=== PATIENT | female | born 1990 | race Caucasian/White ===

== ENCOUNTER 2017-06-22 15:40 | Emergency (ER) | payer OTHER ==
--- NOTE | 2017-06-22 16:43 | ED Physician Documentation ---
PD HPI HEADACHE - Stated complaint Stated Complaint: ANXIETY/PALPITATIONS - Chief complaint Chief Complaint: General - History obtained from History obtained from: Patient - History of Present Illness Timing - onset: How many days ago (few days of feeling some lightheaded, with headache for the past week. Feeling some fluttering/palpitations in chest today. No significant caffeine use.) Timing - onset during: Rest Timing - duration: Weeks (1) Timing - details: Gradual onset, Still present, Waxing and waning Location: Front Quality: Throbbing, Aching. No: Thunderclap Associated symptoms: Nausea. No: Fever, Stiff neck, Vomiting, Weakness, Numbness, Eye pain Worsened by: Light Contributing factors: No: Anticoagulated, Possible carbon monoxide, Recent illness, Trauma Similar symptoms before: Has not had sx before Recently seen: Not recently seen Review of Systems Constitutional: denies: Fever, Chills Eyes: reports: Photophobia. denies: Loss of vision, Decreased vision Ears: denies: Loss of hearing, Ear pain Nose: denies: Rhinorrhea / runny nose, Congestion Throat: denies: Sore throat Cardiac: reports: Palpitations. denies: Chest pain / pressure Respiratory: denies: Cough GI: denies: Abdominal Pain, Nausea, Vomiting, Diarrhea Skin: denies: Rash, Lesions Musculoskeletal: denies: Neck pain, Back pain, Extremity swelling Neurologic: reports: Generalized weakness, Headache. denies: Focal weakness, Numbness, Near syncope, Altered mental status, Head injury Endocrine: reports: Weight gain (about 20 lbs in the past 2 months). denies: Weight loss Immunocompromised: denies: Immunocompromised PD PAST MEDICAL HISTORY - Past Medical History Cardiovascular: None Respiratory: None Neuro: None Endocrine/Autoimmune: None - Present Medications Home Medications: Ambulatory Orders Medication Instructions Recorded Confirmed Escitalopram [Lexapro] 10 mg PO DAILY 06/22/17 06/22/17 HYDROcod/ACETAM 5/325 [Stevenson 5/325] 1 tab PO Q6H PRN #15 tablet 06/22/17 Lorazepam [Ativan] 1 mg PO BID #12 tablet 06/22/17 Naproxen 375 mg PO BID #20 tablet 06/22/17 - Allergies Allergies/Adverse Reactions: Allergies Allergy/AdvReac Type Severity Reaction Status Date / Time ketorolac tromethamine * AdvReac Unknown Verified 06/22/17 15:49 [From Toradol] morphine AdvReac Unknown Verified 06/22/17 15:49 - Living Situation Living Situation: reports: With spouse/s.o. (who is on deployment for past 2 months and returning in few days. ) Living Arrangement: reports: At home - Social History Does the pt smoke?: No Does the pt drink ETOH?: No Does the pt have substance abuse?: No - Family History Family history: reports: Non contributory. denies: Cerebral aneurysm PD ED PE NORMAL - Vitals Vital signs reviewed: Yes - General General: Alert and oriented X 3, No acute distress, Well developed/nourished - HEENT HEENT: PERRL, EOMI, Moist mucous membranes, Pharynx benign - Neck Neck: Supple, no meningeal sign, No adenopathy, No bruit - Cardiac Cardiac: RRR, No murmur - Respiratory Respiratory: Clear bilaterally - Abdomen Abdomen: Normal bowel sounds, Soft - Back Back: No CVA TTP - Derm Derm: Normal color, Warm and dry, No rash - Extremities Extremities: No deformity, No tenderness to palpate, Normal ROM s pain - Neuro Neuro: Alert and oriented X 3, 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 No: ST elevation c/w ischemia, ST depression Compare to prior EKG: Old EKG unavailable - Labs Labs: Laboratory Tests 06/22/17 06/22/17 06/22/17 17:21 17:21 17:21 WBC 7.7 RBC 4.98 Hgb 15.1 Hct 43.4 MCV 87.1 MCH 30.2 MCHC 34.7 RDW 12.6 Plt Count 285 MPV 7.0 L Neut # 4.1 Lymph # 2.9 [place] # 0.4 Eos # 0.1 Baso # 0.1 Absolute Nucleated RBC 0.00 Nucleated RBCs 0.0 ESR 2 Sodium 138 Potassium 3.7 Chloride 105 Carbon Dioxide 28 Anion Gap 5.0 L BUN 13 Creatinine 0.8 Estimated GFR (MDRD) 86 L Glucose 87 Calcium 8.8 Magnesium 2.1 Total Bilirubin 0.2 AST 20 ALT 17 Alkaline Phosphatase 53 Total Protein 7.3 Albumin 4.3 Globulin 3.0 Albumin/Globulin Ratio 1.4 Lipase 31 TSH Serum HCG, Qual Urine Color Urine Clarity Urine pH Ur Specific [place] Urine Protein Urine Glucose (UA) Urine Ketones Urine Occult Blood Urine Nitrite Urine Bilirubin Urine Urobilinogen Ur Leukocyte Esterase Ur Microscopic Review Urine Culture Comments 06/22/17 06/22/17 06/22/17 17:21 17:21 17:50 WBC RBC Hgb Hct MCV MCH MCHC RDW Plt Count MPV Neut # Lymph # [place] # Eos # Baso # Absolute Nucleated RBC Nucleated RBCs ESR Sodium Potassium Chloride Carbon Dioxide Anion Gap BUN Creatinine Estimated GFR (MDRD) Glucose Calcium Magnesium Total Bilirubin AST ALT Alkaline Phosphatase Total Protein Albumin Globulin Albumin/Globulin Ratio Lipase TSH 1.85 Serum HCG, Qual NEGATIVE Urine Color YELLOW Urine Clarity CLEAR Urine pH 6.0 Ur Specific [place] 1.020 Urine Protein NEGATIVE Urine Glucose (UA) NEGATIVE Urine Ketones NEGATIVE Urine Occult Blood NEGATIVE Urine Nitrite NEGATIVE Urine Bilirubin NEGATIVE Urine Urobilinogen 0.2 (NORMAL) Ur Leukocyte Esterase NEGATIVE Ur Microscopic Review NOT INDICATED Urine Culture Comments NOT INDICATED - Rads (name of study) head CT Radiology: Prelim report reviewed, EMP read contemporaneously (no acute process. ) PD MEDICAL DECISION MAKING - ED course Complexity details: reviewed results (no acute on CT head. ECG showing normal pattern. Did not see any irregular rhythms on monitor while here. She says she did have some flutter feeling while in ED and not obvious irreg rhythm on wave review. ), considered differential, d/w patient Departure - Departure Disposition: Home, Self Care Clinical Impression: Muscle tension headache, Palpitations Condition: Stable Record reviewed to determine appropriate education?: Yes Instructions: Headaches Tension Follow-Up: ZARI Aguiar [Provider Group] Prescriptions: Lorazepam [Ativan] 1 mg PO BID #12 tablet Naproxen 375 mg PO BID #20 tablet HYDROcod/ACETAM 5/325 [Stevenson 5/325] 1 tab PO Q6H PRN #15 tablet PRN Reason: Pain Comments: Naproxen twice daily for inflammation and headache. Add Tylenol or hydrocodone if needed for the headache. Ativan twice daily in particular at bedtime to help with sleep and anxiety. Drink lots of fluids. Recheck if not improved over the next few days. Discharge Date/Time: 06/22/17 19:51
[2017-06-22] MEDS ORDERED: ONDANSETRON ODT 4 MG TABLET TL STA (17:05)
[2017-06-22] MEDS ORDERED: ACETAMINOPHEN 325 MG TABLET PO STA (17:06)
[2017-06-22] MEDS ORDERED: IBUPROFEN 400 MG TABLET PO STA (17:07)
[2017-06-22] MEDS ORDERED: IBUPROFEN 400 MG TABLET PO ONE (17:21)
[2017-06-22] MEDS ORDERED: ACETAMINOPHEN 325 MG TABLET PO ONE (17:21)
[2017-06-22] MEDS ORDERED: ONDANSETRON ODT 4 MG TABLET ONE (17:22)
[2017-06-22 17:31] LABS: BASOPHILS # (AUTO) 0.1 10^3/uL (0.0-0.1); BASOPHILS % (AUTO) 1.2 %; EOSINOPHILS # (AUTO) 0.1 10^3/uL (0.0-0.7); EOSINOPHILS % (AUTO) 1.5 %; HCT - HEMATOCRIT 43.4 % (37.0-47.0); HGB - HEMOGLOBIN 15.1 g/dL (12.0-16.0); LYMPHOCYTES # (AUTO) 2.9 10^3/uL (1.5-3.5); LYMPHOCYTES % (AUTO) 37.6 %; MEAN CORPUSCULAR HEMOGLOBIN 30.2 pg (27.0-31.0); MEAN CORPUSCULAR HGB CONC 34.7 g/dL (32.0-36.0); MEAN CORPUSCULAR VOLUME 87.1 fL (81.0-99.0); MONOCYTES # (AUTO) 0.4 10^3/uL (0.0-1.0); MONOCYTES % (AUTO) 5.6 %; NEUTROPHILS # (AUTO) 4.1 10^3/uL (1.5-6.6); NEUTROPHILS % (AUTO) 54.1 %; RED BLOOD COUNT 4.98 10^6/uL (4.20-5.40); RED CELL DISTRIBUTION WIDTH 12.6 % (12.0-15.0); UNCORRECTED WHITE BLOOD COUNT 7.7 x10^3/uL; WHITE BLOOD COUNT 7.7 x10^3/uL (4.8-10.8)
[2017-06-22 17:44] LABS: ALBUMIN/GLOBULIN RATIO 1.4 (1.0-2.2); BILIRUBIN,TOTAL 0.2 mg/dL (0.2-1.0); CALCIUM 8.8 mg/dL (8.5-10.3); CREATININE 0.8 mg/dL (0.4-1.0); MAGNESIUM 2.1 mg/dL (1.7-2.8); POTASSIUM 3.7 mmol/L (3.5-5.0); TOTAL PROTEIN 7.3 g/dL (6.7-8.2)
[2017-06-22 17:58] LABS: BILIRUBIN,URINE NEGATIVE (NEGATIVE); UA CHARGE (STRIP ONLY) YES; UR CULTURE IF IND NOT INDICATED
[2017-06-22] MEDS ORDERED: DEXAMETHASONE 10 MG/ML VIAL PO STA (19:39)
[2017-06-22 19:40] VITALS: BP 115/76
[2017-06-22] MEDS ORDERED: DEXAMETHASONE 10 MG/ML VIAL ONE (19:46)
--- NOTE | 2017-06-22 19:48 | CT Preliminary Report ---
Exam: CT Head W/O IMPRESSION: No acute intracranial abnormality. 3.5 x 2 x 2.2 cm middle cranial fossa arachnoid cyst. [facility] SITE ID: [id number]
--- NOTE | 2017-06-22 19:53 | CT Report ---
EXAM: CT HEAD EXAM DATE: 06/22/2017 07:26 PM. CLINICAL HISTORY: Headache and feels confused. COMPARISON: None. TECHNIQUE: Multiaxial CT images were obtained from the foramen magnum to the vertex. IV contrast: Non e. Reformats: Coronal. In accordance with CT protocol optimization, one or more of the following dose reduction techniques w ere utilized for this exam: automated exposure control, adjustment of mA and/or KV based on patient s ize, or use of iterative reconstructive technique. FINDINGS: Parenchyma: No intraparenchymal hemorrhage. No evidence of mass, midline shift, or CT findings of inf arction. Santos-white differentiation is distinct. Extraaxial Spaces: Normal for age. No subdural or epidural collections identified. Prominent CSF flui d density structure in the right temporal fossa on image 4 measures 3.5 x 2 x 2.2 cm. Findings probab ly represent a prominent arachnoid cyst. Ventricles: Normal in size and position. Sinuses: Small left maxillary sinus polyp. Otherwise, the imaged paranasal sinuses, orbits, and masto ids show no significant abnormality. Bones: No evidence of fracture or calvarial defect. Other: None. IMPRESSION: No acute intracranial abnormality. 3.5 x 2 x 2.2 cm middle cranial fossa arachnoid cyst. [facility] Referring Provider Line: [phone] SITE ID: [id number]
== END 2017-06-22 19:51 | disposition home or self-care (01) ==
LOC: ED 15:40
DX: G44.209 Tension-type headache, unspecified, not intractable (principal); R00.2 Palpitations
CPT/HCPCS: 36415; 70450; 80053; 81003; 83690; 83735; 84443; 84703; 85025; 85651; 93005; 99283; 99284; A9270; Q0162; 81001; 87086